=== PATIENT | female | born 1950 | race Hispanic/Latino ===

== ENCOUNTER 2017-05-27 22:46 | Emergency (ER) | payer MEDICARE, MEDICAID ==
[2017-05-27 22:46] VITALS: BMI 23.2
[2017-05-27 23:28] VITALS: RESP 18; TEMP 98.2
--- NOTE | 2017-05-28 00:26 | C.PDOC ---
History Of Present Illness Patient with a Hx of cerebral aneurism with surgical clip who presents to the ER with a headache that has been worsening over the past 2-3 days. Patient states the pain is more on the right side but reports it initially was on the left side of the head. Denies fever, chills, nausea, vomiting, visual changes, or weakness. Time Seen by Provider: 05/28/17 00:25 Chief Complaint (Nursing): Headache History Per: Patient History/Exam Limitations: no limitations Onset/Duration Of Symptoms: Days Current Symptoms Are (Timing): Still Present Severity: Moderate Pain Scale Rating Of: 4 Preceeding Symptoms: None Associated Symptoms: denies: Photophobia, Blurred Vision, Nausea, Vomiting, Extremity Weakness Recent travel outside of the [place]: No Past Medical History Vital Signs: Last Vital Signs Temp 98.2 F 05/27/17 23:25 Pulse 57 L 05/28/17 02:26 Resp 18 05/28/17 02:26 BP 129/76 05/28/17 02:26 Pulse Ox 97 05/28/17 02:26 - Medical History PMH: Anxiety, Colonic Polyps, HTN, Hypercholesterolemia, Hypothyroidism ( thyroid ca s/p thyroidectomy), Kidney Stones (lithotripsy x 3), Osteoporosis, Chronic Kidney Disease Other PMH: Cerebral aneurism Surgical History: Endoscopy Other Surgeries: Clipped cerebral aneurism Family History: States: No Known Family Hx - Social History Hx Tobacco Use: No Hx Alcohol Use: No Hx Substance Use: No - Immunization History Hx Tetanus Toxoid Vaccination: No Hx Influenza Vaccination: No Hx Pneumococcal Vaccination: No Review Of Systems Constitutional: Negative for: Fever, Chills Eyes: Negative for: Vision Change Gastrointestinal: Negative for: Nausea, Vomiting Neurological: Positive for: Headache. Negative for: Weakness Physical Exam - Physical Exam Appears: Non-toxic Skin: Warm, Dry Head: Normacephalic Eye(s): bilateral: Normal Inspection, PERRL, EOMI Oral Mucosa: Moist Neck: Trachea Midline, Supple Chest: Symmetrical, No Tenderness Cardiovascular: Rhythm Regular, No Murmur Respiratory: No Rales, No Rhonchi, No Wheezing Gastrointestinal/Abdominal: Soft, No Tenderness Extremity: No Tenderness Extremity: Bilateral: Atraumatic, Normal Color And Temperature Neurological/Psych: Oriented x3, Normal Speech, Normal Cognition Gait: Steady ED Course And Treatment O2 Sat by Pulse Oximetry: 96 (Room air) Pulse Ox Interpretation: Normal Progress Note: CT head ordered. Reevaluation Time: 03:01 Reassessment Condition: Improved Medical Decision Making Medical Decision Making: Upon provider reevaluation patient is feeling better, is medically stable, and requires no further treatment in the ED at this time. Patient will be discharged home . Counseling was provided and all questions were answered regarding diagnosis and need for follow up with dr parr. There is agreement to discharge plan. Return if symptoms persist or worsen. Disposition Counseled Patient/Family Regarding: Studies Performed, Diagnosis, Need For Followup - Disposition Referrals: Dl Parr MD [Staff Provider] - Disposition: HOME/ ROUTINE Disposition Time: 00:26 Condition: FAIR Instructions: Acute Headache (DC) Forms: [employer] (Sri [place]ankan) - Clinical Impression Clinical Impression: Headache - Scribe Statement Omer Junior All medical record entries made by the Scribe were at my direction and personally dictated by me. I have reviewed the chart and agree that the record accurately reflects my personal performance of the history, physical exam, medical decision making, and the department course for this patient. I have also personally directed, reviewed, and agree with the discharge instructions and disposition.
[2017-05-28 02:26] VITALS: BP 129/76; PULSE 57
--- NOTE | 2017-05-28 02:26 | CT ---
EXAM: CT Head Without Intravenous Contrast CLINICAL HISTORY: 66 years old, female; Pain; Headache and other: Headache, HX of anneurysm with clip; Prior surgery; Surgery type: Brain clip TECHNIQUE: Axial computed tomography images of the head/brain without intravenous contrast. This CT exam was performed using one or more of the following dose reduction techniques: automated exposure control, adjustment of the mA and/or kV according to patient size, and/or use of iterative reconstruction technique. COMPARISON: No relevant prior studies available. FINDINGS: Brain: Mild atrophy. No intracranial hemorrhage. No mass. Small parenchymal calcification. Few scattered foci of decreased attenuation within periventricular/subcortical white matter. No definite edema. Ventricles: No hydrocephalus. Bones/joints: No acute fracture. Postsurgical changes of calvarium. Soft tissues: Unremarkable. Vasculature: Mild atherosclerotic disease of intracranial arteries. Aneurysm clips. Sinuses: No acute sinusitis. Mastoid air cells: No mastoid effusion. Orbits: Unremarkable as visualized. IMPRESSION: 1. Nonspecific white matter changes. Acute infarction may be CT occult within first 24 hours. If a focal deficit persists, consider followup CT or MRI for further evaluation. 2. Incidental/non-acute findings are described above.
[2017-05-28 03:03] VITALS: O2SAT 96
== END 2017-05-28 03:10 | disposition home or self-care (01) ==
LOC: C.ER 22:46
DX: R51 Headache (principal)

== ENCOUNTER 2017-12-02 20:30 | Emergency (ER) | payer MEDICARE, MEDICAID ==
[2017-12-02 20:30] VITALS: BMI 23.2
[2017-12-02 22:33] VITALS: O2SAT 96
--- NOTE | 2017-12-03 00:30 | C.PDOC ---
History Of Present Illness Patient is a 67 y/o female who presents to the ED with a complaint of intermittent abdominal pain for the last 3 days. Patient woke up with abdominal pain again, prompting visit. Denies fever, chills, dysuria, or diarrhea; admits to nausea and tolerating PO. No other physical complaints at this time. Time Seen by Provider: 12/03/17 00:29 Chief Complaint (Nursing): Abdominal Pain History Per: Patient History/Exam Limitations: no limitations Onset/Duration Of Symptoms: Days (3 days), Intermittent Episodes Current Symptoms Are (Timing): Still Present Severity: Moderate Pain Scale Rating Of: 4 Location Of Pain/Discomfort: RUQ Quality Of Discomfort: "Pain" Associated Symptoms: Nausea. denies: Fever, Chills, Diarrhea, Urinary Symptoms Recent travel outside of the [place]: No Past Medical History Reviewed: Historical Data, Nursing Documentation, Vital Signs Vital Signs: Last Vital Signs Temp 97.6 F 12/02/17 22:27 Pulse 76 12/02/17 22:27 Resp 18 12/02/17 22:27 BP 139/92 H 12/02/17 22:27 Pulse Ox 96 12/03/17 02:20 - Medical History PMH: Anxiety, Colonic Polyps, HTN, Hypercholesterolemia, Hypothyroidism ( thyroid ca s/p thyroidectomy), Kidney Stones (lithotripsy x 3), Osteoporosis, Chronic Kidney Disease Denies: Asthma, Atrial Fibrillation, Bronchitis, Cardia Arrhythmia, CHF, COPD , Emphysema, Migraine, Mitral Valve Prolapse, Peripheral Edema, Pneumonia, Pulmonary Embolism, Seizures, Sleep Apnea, TIA Surgical History: Endoscopy Denies: Pacemaker Family History: States: No Known Family Hx - Social History Hx Tobacco Use: No Hx Alcohol Use: No Hx Substance Use: No - Immunization History Hx Tetanus Toxoid Vaccination: No Hx Influenza Vaccination: No Hx Pneumococcal Vaccination: No Review Of Systems Constitutional: Negative for: Fever, Chills Eyes: Negative for: Redness ENT: Negative for: Throat Pain Cardiovascular: Negative for: Chest Pain Respiratory: Negative for: Shortness of Breath Gastrointestinal: Positive for: Nausea, Abdominal Pain. Negative for: Diarrhea Genitourinary: Negative for: Dysuria, Frequency Musculoskeletal: Negative for: Back Pain Skin: Negative for: Rash Neurological: Negative for: Weakness Psych: Negative for: Anxiety Physical Exam - Physical Exam Appears: Non-toxic, No Acute Distress Skin: Warm, Dry Head: Normacephalic Eye(s): bilateral: Normal Inspection Oral Mucosa: Moist Neck: Supple Chest: Symmetrical Cardiovascular: Rhythm Regular, No Murmur Respiratory: Normal Breath Sounds, No Rales, No Rhonchi, No Wheezing Gastrointestinal/Abdominal: Soft, Tenderness (mild RUQ tenderness), No Distention, No Guarding, No Rebound Back: Normal Inspection Extremity: Normal ROM Extremity: Bilateral: Atraumatic Neurological/Psych: Oriented x3, Normal Speech, Normal Cognition Gait: Steady ED Course And Treatment - Laboratory Results Result Diagrams: 12/03/17 00:53 12/03/17 00:53 O2 Sat by Pulse Oximetry: 96 Pulse Ox Interpretation: Normal Progress Note: EKG and CT A/P ordered. Pepcid, morphine, and IV fluids administered. Reevaluation Time: 05:11 Reassessment Condition: Improved Disposition Counseled Patient/Family Regarding: Studies Performed, Diagnosis, Need For Followup - Disposition Disposition: HOME/ ROUTINE Disposition Time: 00:30 Condition: FAIR Additional Instructions: Please follow up with your primary physician, and do return if symptoms recur Prescriptions: Ondansetron ODT [Zofran ODT] 1 odt PO BID PRN #6 odt PRN Reason: Nausea/Vomiting Instructions: Diverticulosis (ED), Diverticulosis Diet (ED), Abdominal Pain (ED ), Gas and Bloating (ED) Forms: [employer] (Serbian) - Clinical Impression Clinical Impression: Abdominal pain, Diverticulosis - Scribe Statement The provider has reviewed the documentation as recorded by the Scribe Laina Ruff All medical record entries made by the Scribe were at my direction and personally dictated by me. I have reviewed the chart and agree that the record accurately reflects my personal performance of the history, physical exam, medical decision making, and the department course for this patient. I have also personally directed, reviewed, and agree with the discharge instructions and disposition.
[2017-12-03] MEDS ORDERED: Morphine 4 MG/ML VIAL IV ONE (00:36)
[2017-12-03] MEDS ORDERED: Sodium Chloride 0.9% 1,000 ML IV ONE (00:36)
[2017-12-03 00:58] LABS: BASO # 0.1 K/uL (0.0-0.2); EOS # 0.2 K/uL (0.0-0.7); EOS % 1.4 % (0.0-4.0); HEMOGLOBIN 13.1 g/dL (11.0-16.0); LYMPH # 2.5 K/uL (1.0-4.3); LYMPH % 23.1 % (20.0-40.0); MEAN CELL VOLUME 90.7 fL (81.0-99.0); MEAN CORPUSCULAR HGB CONC 34.2 g/dL (33.0-37.0); MEAN PLATELET VOLUME 8.2 fL (7.2-11.7); MONO # 0.4 K/uL (0.0-0.8); MONO % 4.2 % (0.0-10.0); NEUT # 7.5 K/uL (1.8-7.0); NEUT % 70.3 % (50.0-75.0); RBC 4.22 Mil/uL (3.80-5.20); RED CELL DISTRIBUTION WIDTH 13.6 % (11.5-14.5); WHITE BLOOD COUNT 10.6 K/uL (4.8-10.8)
[2017-12-03 01:05] LABS: SQUAMOUS EPITHIAL 1 /hpf (0-5); URINE BILIRUBIN NEGATIVE (NEGATIVE); URINE BLOOD NEGATIVE (NEGATIVE); URINE CLARITY Hazy (Clear); URINE COLOR Yellow (YELLOW); URINE GLUCOSE (UA) NORMAL (Normal); URINE HYALINE CAST 0-2 /lpf (0-2); URINE LEUKOCYTE ESTERASE 1+ Leu/uL (Negative); URINE NITRATE NEGATIVE (NEGATIVE); URINE PROTEIN 1+ mg/dL (NEGATIVE); URINE UROBILINOGEN NORMAL mg/dL (0.2-1.0)
[2017-12-03 01:06] LABS: PROTHROMBIN TIME 11.6 SECONDS (9.7-12.2)
[2017-12-03 01:13] LABS: ALB/GLOB RATIO 1.2 (1.0-2.1); ALBUMIN 4.2 g/dL (3.5-5.0); ALT/SGPT 28 U/L (9-52); AST/SGOT 20 U/L (14-36); BLOOD UREA NITROGEN 23 mg/dL (7-17); CALCIUM 9.3 mg/dl (8.6-10.4); GFR AFRICAN-AMERICAN > 60; GFR NON-AFRICAN AMERICAN > 60; LIPASE 172 U/L (23-300)
[2017-12-03] MEDS ORDERED: Sodium Chloride 0.9% 1,000 ML ONE (01:23)
--- NOTE | 2017-12-03 04:39 | CT ---
EXAM: CT Abdomen and Pelvis Without Intravenous Contrast CLINICAL HISTORY: 67 years old, female; Pain; Abdominal pain; Prior surgery; Surgery type: Heart surgery; Patient HX: 04-28-16; Additional info: Ruq abd pain TECHNIQUE: Axial computed tomography images of the abdomen and pelvis without intravenous contrast. All CT scans at this facility use one or more dose reduction techniques, viz.: automated exposure control; ma/kV adjustment per patient size (including targeted exams where dose is matched to indication; i.e. head); or iterative reconstruction technique. Coronal and sagittal reformatted images were created and reviewed. COMPARISON: CT - ABD PELVIS W/O PO OR IV CONT 2016-04-28 22:54 FINDINGS: Limitations: Lack of intravenous contrast. Motion artifact - mild. Lower thorax: Mild cardiomegaly. Coronary artery calcifications. Minimal atelectasis/scarring. Electronic device within left lower anterior chest wall. ABDOMEN: Liver: Unremarkable. Gallbladder and bile ducts: No calcified stones. No ductal dilation. Pancreas: Unremarkable. No ductal dilation. Spleen: No splenomegaly. Adrenals: No mass. Kidneys and ureters: Focal lobulation of left kidney, stable. Few probable subcentimeter hemorrhagic/proteinaceous cysts within left kidney. Few small calculi within LEFT kidney. No hydronephrosis. Stomach and bowel: Scattered diverticula within colon. No associated inflammatory stranding. No definite mural thickening. No obstruction. Appendix: No definite findings to suggest acute appendicitis. PELVIS: Bladder: Unremarkable. No stones. Reproductive: Hysterectomy. ABDOMEN and PELVIS: Intraperitoneal space: Trace free fluid within pelvis. No free air. Bones/joints: Mild degenerative changes and scoliosis of spine. No acute fracture. Soft tissues: Small umbilical hernia containing fat. Tiny LEFT inguinal hernia containing fat. Vasculature: Mild atherosclerotic disease. No aneurysm. Lymph nodes: No pathologically enlarged lymph nodes. IMPRESSION: 1. Diverticulosis without definite CT evidence of diverticulitis. 2. Trace pelvic ascites. 3. Incidental/non-acute findings are described above.
[2017-12-03 05:21] VITALS: BP 128/76; PULSE 68; RESP 16; TEMP 97.7
--- NOTE | 2017-12-05 14:46 | CARD ---
APPROVED REPORT EKG Measurement Heart [id number] <Conclusion> Sinus bradycardia Nonspecific T wave abnormality Abnormal ECG
== END 2017-12-03 05:50 | disposition home or self-care (01) ==
LOC: C.ER 20:30
DX: R10.11 Right upper quadrant pain (principal); K57.90 Diverticulosis of intestine, part unspecified, without perforation or abscess without bleeding; E03.9 Hypothyroidism, unspecified; E78.00 Pure hypercholesterolemia, unspecified; I12.9 Hypertensive chronic kidney disease with stage 1 through stage 4 chronic kidney disease, or unspecified chronic kidney disease; N18.9 Chronic kidney disease, unspecified
CPT/HCPCS: 74176; 80053; 81001; 83690; 85025; 85610; 85730; 96361; 96374; 99284; J7040

== ENCOUNTER 2017-12-31 16:38 | Emergency (ER) | payer MEDICARE, MEDICAID ==
[2017-12-31 16:45] VITALS: BMI 24.9
[2017-12-31 16:49] VITALS: TEMP 98.7; O2SAT 96
--- NOTE | 2017-12-31 17:17 | C.PDOC ---
History Of Present Illness 67 year old female, with PMHx of HTN, presents to ED for evaluation of cough, body aches, and fever for the last 5 days. Pt reports having chest pain when coughing, and reports associated green sputum. Also reports intermittent shortness of breath for the last 5 days. fever to 101 at home. Pt denies having PMD evaluation. Denies any other complaints at this time. HPI: Influenza Time Seen by Provider: 12/31/17 16:46 Chief Complaint: Cough, Cold, Congestion History Per: Patient Exam Limitations: no limitations Have you had recent travel within the past 21 days to any of the following countries: [place], [place], [place] or [place]?: No Onset/Duration Of Symptoms: Days (5) Symptoms include: fever, bodyaches, cough. denies: vomiting, diarrhea Past Medical History Reviewed: Historical Data, Nursing Documentation, Vital Signs Vital Signs: Last Vital Signs Temp 98.7 F 12/31/17 16:45 Pulse 79 12/31/17 16:45 Resp 17 12/31/17 16:45 BP 135/87 12/31/17 16:45 Pulse Ox 96 12/31/17 17:01 - Medical History PMH: Anxiety, Colonic Polyps, HTN, Hypercholesterolemia, Hypothyroidism ( thyroid ca s/p thyroidectomy), Kidney Stones (lithotripsy x 3), Osteoporosis, Chronic Kidney Disease Denies: Asthma, Atrial Fibrillation, Bronchitis, Cardia Arrhythmia, CHF, COPD , Emphysema, Migraine, Mitral Valve Prolapse, Peripheral Edema, Pneumonia, Pulmonary Embolism, Seizures, Sleep Apnea, TIA Surgical History: Endoscopy Denies: Pacemaker Family History: States: Unknown Family Hx - Social History Hx Tobacco Use: No Hx Alcohol Use: No Hx Substance Use: No - Immunization History Hx Tetanus Toxoid Vaccination: No Hx Influenza Vaccination: No Hx Pneumococcal Vaccination: No Review Of Systems Except As Marked, All Systems Reviewed And Found Negative. Constitutional: Positive for: Fever, Other (body aches) Cardiovascular: Positive for: Chest Pain. Negative for: Palpitations Respiratory: Positive for: Cough, Shortness of Breath, Sputum Gastrointestinal: Negative for: Nausea, Vomiting, Abdominal Pain Neurological: Negative for: Headache, Dizziness Physical Exam - Physical Exam Appears: Non-toxic, No Acute Distress Skin: Normal Color, Warm, Dry Head: Atraumatic, Normacephalic Eye(s): bilateral: Normal Inspection Nose: Normal Oral Mucosa: Moist Neck: Normal ROM, Supple Chest: Symmetrical Cardiovascular: Rhythm Regular, No Murmur Respiratory: Normal Breath Sounds, No Rales, No Rhonchi, No Wheezing Gastrointestinal/Abdominal: Soft, No Tenderness Extremity: Normal ROM, No Deformity Neurological/Psych: Oriented x3, Normal Speech Medical Decision Making Medical Decision Making: cough r/o pna influenza, atypical cp acs less liekly. 615: pt reassesse dlungs clear, cp free. cxr neg for infiltrate. pt with noted possible tortous aorta. pt with allergy to iodine, "reports throat closes". advised to f/u outpt. return precautions advised. willl tx with tamiflu. son also reports he is sick with same symptoms - Laboratory Results Result Diagrams: 12/31/17 17:24 12/31/17 17:24 - ECG O2 Sat by Pulse Oximetry: 96 (RA) Pulse Ox Interpretation: Normal - Progress ED Course And Treament: Blood work, Influenza AB, CXR, EKG was ordered and reviewed. EKG: NSR [address]/T wave changes. Disposition - Disposition Referrals: Himanshu Abarca MD [Staff Provider] - Disposition: HOME/ ROUTINE Disposition Time: 07:00 Condition: STABLE Additional Instructions: please follow up with your doctor and discuss results of you labs and chest xray with your doctor. return to er with worsening symptoms or concerns. Prescriptions: Oseltamivir Phosphate [Tamiflu] 75 mg PO BID #10 capsule Instructions: Chest Pain, Cough, Adult (DC), Viral Syndrome (DC) Forms: [employer] (Bulgarian) - Clinical Impression Clinical Impression: Influenza-like illness - Scribe Statement The provider has reviewed the documentation as recorded by the Lilibethibjacky Gerard All medical record entries made by the Scribe were at my direction and personally dictated by me. I have reviewed the chart and agree that the record accurately reflects my personal performance of the history, physical exam, medical decision making, and the department course for this patient. I have also personally directed, reviewed, and agree with the discharge instructions and disposition.
[2017-12-31 17:27] LABS: BASO % 0.8 % (0.0-2.0); EOS # 0.2 K/uL (0.0-0.7); EOS % 2.8 % (0.0-4.0); HEMOGLOBIN 12.8 g/dL (11.0-16.0); LYMPH % 33.1 % (20.0-40.0); MEAN CELL VOLUME 89.2 fL (81.0-99.0); MEAN CORPUSCULAR HEMOGLOBIN 30.2 pg (27.0-31.0); MEAN CORPUSCULAR HGB CONC 33.8 g/dL (33.0-37.0); MEAN PLATELET VOLUME 7.8 fL (7.2-11.7); MONO # 0.5 K/uL (0.0-0.8); MONO % 7.5 % (0.0-10.0); NEUT # 3.4 K/uL (1.8-7.0); NEUT % 55.8 % (50.0-75.0); RBC 4.23 Mil/uL (3.80-5.20); RED CELL DISTRIBUTION WIDTH 13.2 % (11.5-14.5); WHITE BLOOD COUNT 6.2 K/uL (4.8-10.8)
[2017-12-31 17:35] LABS: INR 1.1; PROTHROMBIN TIME 11.8 SECONDS (9.7-12.2)
[2017-12-31 17:50] LABS: ALB/GLOB RATIO 1.3 (1.0-2.1); ALBUMIN 4.2 g/dL (3.5-5.0); ALT/SGPT 34 U/L (9-52); AST/SGOT 33 U/L (14-36); BLOOD UREA NITROGEN 23 mg/dL (7-17); CALCIUM 8.8 mg/dl (8.6-10.4); GFR AFRICAN-AMERICAN > 60; GFR NON-AFRICAN AMERICAN > 60
[2017-12-31 17:56] LABS: B-TYPE NATRIURETIC PEPTIDE 71.9 pg/mL (0-900)
--- NOTE | 2017-12-31 18:06 | RAD ---
HISTORY: chest pain COMPARISON: Chest x-ray performed 03/17/14 TECHNIQUE: Chest PA and lateral FINDINGS: LUNGS: No focal consolidation. Please note that chest x-ray has limited sensitivity for the detection of pulmonary masses. PLEURA: No significant pleural effusion identified. No definite pneumothorax . CARDIOVASCULAR: Prominent mediastinum may reflect tortuous ectatic aorta. Heart size appears top normal. OSSEOUS STRUCTURES: No acute osseous abnormality identified. VISUALIZED UPPER ABDOMEN: Unremarkable. OTHER FINDINGS: None. IMPRESSION: Prominent mediastinum may reflect tortuous ectatic aorta. Correlate clinically. CT of the chest with IV contrast may be considered for further evaluation.
[2017-12-31 18:28] VITALS: BP 142/98; PULSE 76; RESP 19
--- NOTE | 2018-01-02 20:22 | CARD ---
APPROVED REPORT EKG Measurement Heart [id number] <Conclusion> Normal sinus rhythm Normal ECG
== END 2017-12-31 18:46 | disposition home or self-care (01) ==
LOC: C.ER 16:38
DX: J11.1 Influenza due to unidentified influenza virus with other respiratory manifestations (principal); E03.9 Hypothyroidism, unspecified; E78.00 Pure hypercholesterolemia, unspecified; I12.9 Hypertensive chronic kidney disease with stage 1 through stage 4 chronic kidney disease, or unspecified chronic kidney disease; Z85.850 Personal history of malignant neoplasm of thyroid